=== PATIENT | male | born 1975 | race Caucasian/White ===

== ENCOUNTER → 2018-02-25 | Outpatient (CLI) | payer OTHER ==
--- NOTE | 2018-02-25 13:30 | Diagnostic Imaging Report ---
PROCEDURE: X-RAY CHEST, TWO VIEWS COMPARISON: None. INDICATIONS: TB EXPOSURE FOLLOW UP FINDINGS: LUNGS: Clear. No mass or infiltrate. Pulmonary interstitium and pulmonary vasculature are normal. PLEURA: No effusions or pneumothorax. HEART \T\ MEDIASTINUM: The heart is within normal size-limits. No hilar lymphadenopathy. BONES \T\ SOFT TISSUES: No focal osseous lesions. Soft tissues are unremarkable.. CONCLUSION: No active disease. Dictated by: Lelia Giles M.D. on 02/25/2018 at 13:31 Electronically approved by: Lelia Giles M.D. on 02/25/2018 at 13:31
== END ==
LOC: RAD 11:50
DX: Z20.1 Contact with and (suspected) exposure to tuberculosis (principal)
CPT/HCPCS: 71046